=== PATIENT | female | born 1985 | race Caucasian/White ===

== ENCOUNTER 2017-04-29 08:41 | Day surgery (SDC) | payer OTHER ==
[~2017-04-29] VITALS: Ht 165.1 cm; Wt 159.7 kg
== END 2017-04-30 15:56 | disposition home or self-care (01) ==
LOC: ER 08:41 → SEC-K 21:06 → ER 21:06 → CIR.AMB 04-30 13:09 → SEC-K 04-30 13:09 → O/R 04-30 13:09 → CIR.AMB 04-30 15:56
DX: N20.1 Calculus of ureter (principal)

== ENCOUNTER → 2019-09-04 | Outpatient (CLI) | payer OTHER | END | disposition home or self-care (01) | LOC: SONOGRAMA 14:50 | PROVIDERS: ATTEND Specialist | DX: N93.8 Other specified abnormal uterine and vaginal bleeding (principal); N85.01 Benign endometrial hyperplasia ==